=== PATIENT | female | born 1990 | race Caucasian/White ===

== ENCOUNTER → 2017-01-08 | Outpatient (CLI) | payer OTHER ==
--- NOTE | 2017-01-08 10:59 | WOMENS IMAGING REPORT ---
EXAM DESCRIPTION: BILAT DIAGNOSTIC MAMMO W/CAD; U/S BREAST UNILAT LIMITED COMPLETED DATE/TIME: 01/08/2017 9:25 am; 01/08/2017 9:50 am REASON FOR STUDY: LUMP; N63; LT BREAST N63 N63 UNSPECIFIED LUMP IN BREAST palpable abnormality left breast lower inner quadrant COMPARISON: None. TECHNIQUE: Standard craniocaudal and mediolateral oblique views of each breast recorded using digita l acquisition. Additional left breast 90 mediolateral view and cone compression left lower inner quadrant CC and ML O orientations. Left breast ultrasound was also performed. LIMITATIONS: None. FINDINGS: RIGHT BREAST MASSES: No suspicious masses. CALCIFICATIONS: No new or suspicious calcifications. ARCHITECTURAL DISTORTION: None. DEVELOPING DENSITY: None. ASYMMETRY: None noted. OTHER: No other significant findings. LEFT BREAST MASSES: No suspicious masses. CALCIFICATIONS: No new or suspicious calcifications. ARCHITECTURAL DISTORTION: None. DEVELOPING DENSITY: None. ASYMMETRY: None noted. OTHER: No other significant finding. Read with the assistance of CAD: [employer] Coordinator Version 9.2 Left breast ultrasound: Ultrasound of the left breast lower inner quadrant was performed. No focal masses. No cysts. No wo rrisome acoustic absorption. No focal findings. IMPRESSION: No mammographic evidence for malignancy right breast. No mammographic or sonographic evidence for malignancy left breast. BREAST DENSITY: c. The breasts are heterogeneously dense, which may obscure small masses. BIRAD: 1 Negative. RECOMMENDATION: RECOMMENDED FOLLOW UP: Close clinical follow-up for left breast palpable abnormality . Necrosis of growth or change, repeat ultrasound and mammographic workup would be indicated. Other estrella, click please begin yearly bilateral screening mammography at age 40, or sooner based on the pat ient's lifetime risk assessment for breast cancer ([place] model). SPECIFIC INTERVENTION/IMAGING/CONSULTATION RECOMMENDED:No additional intervention/ imaging/consultati on needed at this time. COMMUNICATION:Patient notified by letter COMMENT: The patient has been notified of the results by letter per MQSA requirements. Additional no tification policies are in place for contacting patient with suspicious or incomplete findings. Quality ID #225: The [employer] recommends an annual screening mammogram for women aged 40 years or over. This facility utilizes a reminder system to ensure that all patients receive reminder letters, and/or direct phone calls for appointments. This includes reminders for routine scr eening mammograms, diagnostic mammograms, or other Breast Imaging Interventions when appropriate. Th is patient will be placed in the appropriate reminder system. The [employer] (ACR) has developed recommendations for screening MRI of the breast s in certain patient populations, to be used in conjunction with mammography. Breast MRI surveillanc e may be appropriate for women with more than 20% lifetime risk of developing breast cancer as deter mined by genetic testing, significant family history of the disease, or history of mantle radiation f or Hodgkins Disease. ACR Practice Guidelines 2008. TECHNICAL DOCUMENTATION: FINDING NUMBER: (1) ASSESSMENT: (1) JOB ID: [id number] [employer]- All Rights Reserved
== END ==
LOC: WI 09:25
PROVIDERS: ATTEND Physician Assistant Medical
DX: N63 Unspecified lump in breast (principal)
CPT/HCPCS: 76642; G0204; 77066

== ENCOUNTER 2017-03-28 07:07 | Emergency (ER) | payer OTHER ==
[2017-03-28] MEDS ORDERED: ONDANSETRON 4 MG TAB.RAPDIS PO ONE ×2 (07:17→07:39)
[2017-03-28] MEDS ORDERED: NORMAL SALINE 1000 ML 1,000 ML IV ONE (07:17)
--- NOTE | 2017-03-28 07:17 | ER Document Report ---
ED GI/ - General Stated Complaint: VOMITING/DIARRHEA Mode of Arrival: Ambulatory Information source: Patient Notes: 27 yo female with hives yesterday. This am woke up with exacerbation of the hives and right upper lip swelling. No chest pain or shortness of breath. No fever. 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 Vomited twice and diarrhea once. TRAVEL OUTSIDE OF THE [place] 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 Lives with: Spouse/Significant other Family History: Reviewed & Not Pertinent - Medical History Medical History: Negative Renal/ Medical History: Denies: Hx Peritoneal Dialysis Past Surgical History: Reports: Hx Oral Surgery - wisdom teeth - Immunizations Immunizations up to date: Yes Hx Diphtheria, Pertussis, Tetanus Vaccination: Yes Review of Systems - Review of Systems Constitutional: No symptoms reported EENT: No symptoms reported Cardiovascular: No symptoms reported Respiratory: No symptoms reported Gastrointestinal: See HPI Genitourinary: No symptoms reported Female Genitourinary: No symptoms reported Musculoskeletal: No symptoms reported Skin: See HPI Hematologic/Lymphatic: No symptoms reported Neurological/Psychological: No symptoms reported Physical Exam - Vital signs Vitals: Temp Pulse Resp BP Pulse Ox 97.8 F 102 H 16 117/79 99 03/28/17 07:16 03/28/17 07:16 03/28/17 07:16 03/28/17 07:16 03/28/17 07:16 Interpretation: Normal - General General appearance: Appears well, Alert In distress: None - HEENT Head: Normocephalic, Atraumatic Eyes: Normal Conjunctiva: Normal Pupils: PERRL Mouth/Lips: Other - mild swelling to right upper lip Mucous membranes: Normal Pharynx: Normal. No: Erythema, Uvular edema Neck: Supple. No: Lymphadenopathy - Respiratory Respiratory status: No respiratory distress Chest status: Nontender Breath sounds: Normal Chest palpation: Normal - Cardiovascular Rhythm: Regular Heart sounds: Normal auscultation Murmur: No - Abdominal Inspection: Normal Distension: No distension Bowel sounds: Normal Tenderness: Nontender Organomegaly: No organomegaly - Back Back: Normal, Nontender - Extremities General upper extremity: Normal inspection, Nontender, Normal color, Normal ROM , Normal temperature General lower extremity: Normal inspection, Nontender, Normal color, Normal ROM , Normal temperature, Normal weight bearing. No: Amber's sign - Neurological Neuro grossly intact: Yes Cognition: Normal Orientation: AAOx4 [place] Coma Scale Eye Opening: Spontaneous Jed Coma Scale Verbal: Oriented [place] Coma Scale Motor: Obeys Commands [place] Coma Scale Total: 15 Speech: Normal Motor strength normal: LUE, RUE, LLE, RLE Sensory: Normal - Psychological Associated symptoms: Normal affect, Normal mood - Skin Skin Temperature: Warm Skin Moisture: Dry Skin Color: Normal Skin irregularity: Erythema, Rash - urticarial wrist, upper lateral arms, left hip, abdomen, inner thighs, lower back Location of irregularity: Generalized Irregularity with: Swelling, Warmth Course - Re-evaluation Re-evalutation: 03/28/17 10:22 ua is negative. 03/28/17 red hives faded to pink, lip swelling decreased prior to discharge. She thinks that she has vaginal yeast, itching, burning after tx for trichomonas last week. wants to try diflucan. 03/29/17 09:25 - Vital Signs Vital signs: Temp Pulse Resp BP Pulse Ox 97.8 F 102 H 18 117/68 100 03/28/17 07:16 03/28/17 07:16 03/28/17 10:01 03/28/17 10:01 03/28/17 10:01 - Laboratory Laboratory results interpreted by me: 03/28/17 08:00 Ur Leukocyte Esterase TRACE H Discharge - Discharge Clinical Impression: Urticaria Angioedema Qualifiers: Encounter type: initial encounter Qualified Code(s): T78.3XXA - Angioneurotic edema, initial encounter Vaginitis Qualifiers: Chronicity: acute Qualified Code(s): N76.0 - Acute vaginitis Condition: Good Disposition: HOME, SELF-CARE Instructions: Acid-Suppressing Medication ([facility]), Acute Urticaria ([facility]), Angioedema ([facility]), Use of Diphenhydramine, Steroid Medication, Topical Antifungal ([facility]) Additional Instructions: to er if worse epi pen if lip swelling gets worse and return to the ER continue over the counter benadryl 25- 50mg every 4 hours for the rash for a week continue over the counter pepcid 20mg twice a day for the rash for a week take the prednisone until gone Please complete the patient satisfaction survey if you get one, and return it.. If you do not receive a survey, then you can go to the [facility] website, [email or web address] and place your comments about your very good care. Thank you very much. It was a pleasure being your medical provider today. Prescriptions: Epinephrine 0.3 mg IJ ONCE PRN #1 auto.injct PRN Reason: Fluconazole [Diflucan] 150 mg PO ONCE PRN #1 tablet PRN Reason: Prednisone [Deltasone 10 mg Tablet] 10 mg PO ASDIR PRN #21 tablet PRN Reason: Forms: Parent Work Note Referrals: JOSE C WARNER, [ACTIVE STAFF] - Follow up as needed
[2017-03-28] MEDS ORDERED: METHYLPREDNISOLONE INJ 125 MG/2 ML SDV IV ONE (07:26)
[2017-03-28] MEDS ORDERED: FAMOTIDINE INJ/PF 20 MG/2 ML SDV IV ONE (07:27)
[2017-03-28] MEDS ORDERED: DIPHENHYDRAMINE HCL 50 MG/ML VIAL IV ONE (07:27)
[2017-03-28] MEDS ORDERED: ONDANSETRON 4 MG TAB.RAPDIS ONE (07:31)
[2017-03-28] MEDS ORDERED: EPINEPHRINE INJ/PF 1 MG/1 ML AMPULE SUBCUT ONE (08:47)
[2017-03-28 09:16] LABS: APPEARANCE,URINE SLIGHTLY-CLOUDY; BILIRUBIN,URINE NEGATIVE (NEGATIVE); GLUCOSE, URINE NEGATIVE (NEGATIVE); KETONES,URINE NEGATIVE (NEGATIVE); LEUKOCYTE ESTERASE,URINE TRACE (NEGATIVE); NITRITE,URINE NEGATIVE (NEGATIVE); PROTEIN,URINE NEGATIVE (NEGATIVE); URINE SPECIFIC GRAVITY 1.026; UROBILINOGEN,URINE NEGATIVE mg/dL (<2.0)
[2017-03-28 11:42] VITALS: BP 117/68
== END 2017-03-28 11:01 | disposition home or self-care (01) ==
LOC: ER 07:07
DX: T78.3XXA Angioneurotic edema, initial encounter (principal); L50.9 Urticaria, unspecified; R11.10 Vomiting, unspecified; R19.7 Diarrhea, unspecified; R22.0 Localized swelling, mass and lump, head
CPT/HCPCS: 99285; 96372; 96361; 96374; 96375; 81001; J1200; J0171; S0119; J2930; J7030; S0028

== ENCOUNTER 2017-08-24 07:25 | Emergency (ER) | payer OTHER ==
[2017-08-24 07:31] VITALS: BP 125/74
--- NOTE | 2017-08-24 07:52 | ER Document Report ---
ED General - General Chief Complaint: Skin Problem Stated Complaint: POSSIBLE CYST Time Seen by Provider: 08/24/17 07:35 Mode of Arrival: Ambulatory Information source: Patient TRAVEL OUTSIDE OF THE [place] IN LAST 30 DAYS: No - HPI Notes: 19-year-old female presents today with complaints of left groin swelling that started approximately 2 days ago. Reports she has been using a razor to shave 3 days ago. Denies any fevers or chills. Pain is 1 out of 10, achy. Eating and drinking without issues. Has not tried any [id number] medications. Has not tried any heat or cold compresses. States has been getting slightly worse with time. Last menstrual period was 08/09/17. Patient is sexually active and does not use any form of control. Denies fevers, chills, chest pain, palpitations, shortness of breath, dyspnea, nausea, vomiting, diarrhea, abdominal pain, hematuria,blurred vision, double vision, loss of vision, speech changes, LH, dizziness, syncope, headaches, wheezing, ST, URI, neck pain, weakness, bowel or bladder dysfunction, saddle anesthesia, numbness or tingling in bilateral upper or lower extremities equally, muscle paralysis, weakness in bilateral upper or lower extremities equally or rash. Denies IV drug use. - Related Data Allergies/Adverse Reactions: Penicillins Allergy (Verified 08/24/17 07:27) Past Medical History - General Information source: Patient - Social History Smoking Status: Unknown if Ever Smoked Family History: Reviewed & Not Pertinent - Past Medical History Cardiac Medical History: Denies: Hx Coronary Artery Disease, Hx Heart Attack, Hx Hypertension Pulmonary Medical History: Denies: Hx Asthma, Hx Bronchitis, Hx COPD, Hx Pneumonia Neurological Medical History: Denies: Hx Cerebrovascular Accident, Hx Seizures Renal/ Medical History: Denies: Hx Peritoneal Dialysis Musculoskeltal Medical History: Denies Hx Arthritis Past Surgical History: Reports: Hx Hysterectomy, Hx Oral Surgery - wisdom teeth - Immunizations Immunizations up to date: Yes Hx Diphtheria, Pertussis, Tetanus Vaccination: Yes Review of Systems - Review of Systems Constitutional: No symptoms reported EENT: No symptoms reported Cardiovascular: No symptoms reported Respiratory: No symptoms reported Gastrointestinal: No symptoms reported Genitourinary: No symptoms reported Female Genitourinary: No symptoms reported Musculoskeletal: No symptoms reported Skin: See HPI Hematologic/Lymphatic: No symptoms reported Neurological/Psychological: No symptoms reported Physical Exam - Vital signs Vitals: Temp Pulse Resp BP Pulse Ox 98.1 F 86 20 125/74 100 08/24/17 07:30 08/24/17 07:30 08/24/17 07:30 08/24/17 07:30 08/24/17 07:30 - Notes Notes: REVIEW OF SYSTEMS: CONSTITUTIONAL : Denies fever, chills, or sweats. Denies recent illness. EENT: Denies eye, ear, throat, or mouth pain or symptoms. Denies nasal or sinus congestion or discharge. Denies throat, tongue, or mouth swelling or difficulty swallowing. CARDIOVASCULAR: Denies chest pain. Denies palpitations or racing or irregular heart beat. Denies ankle edema. RESPIRATORY: Denies cough, cold, or chest congestion. Denies shortness of breath, difficulty breathing, or wheezing. GASTROINTESTINAL: Denies abdominal pain or distention. Denies nausea, vomiting , or diarrhea. Denies blood in vomitus, stools, or per rectum. Denies black, tarry stools. Denies constipation. GENITOURINARY: Denies difficulty urinating, painful urination, burning, frequency, blood in urine, or discharge. FEMALE GENITOURINARY: Denies vaginal bleeding, heavy or abnormal periods, irregular periods. Denies vaginal discharge or odor. MUSCULOSKELETAL: Denies back or neck pain or stiffness. Denies joint pain or swelling. SKIN: Denies rash, lesions or sores. HEMATOLOGIC : Denies easy bruising or bleeding. LYMPHATIC: Denies swollen, enlarged glands. NEUROLOGICAL: Denies confusion or altered mental status. Denies passing out or loss of consciousness. Denies dizziness or lightheadedness. Denies headache. Denies weakness or paralysis or loss of use of either side. Denies problems with gait or speech. Denies sensory loss, numbness, or tingling. Denies seizures. PSYCHIATRIC: Denies anxiety or stress. Denies depression, suicidal ideation, or homicidal ideation. ALL OTHER SYSTEMS REVIEWED AND NEGATIVE. PHYSICAL EXAMINATION: GENERAL: Well-appearing, well-nourished and in no acute distress. HEAD: Atraumatic, normocephalic. EYES: Pupils equal round and reactive to light, extraocular movements intact, conjunctiva are normal. ENT: Nares patent, oropharynx clear without exudates. Moist mucous membranes. NECK: Normal range of motion, supple without lymphadenopathy LUNGS: Breath sounds clear to auscultation bilaterally and equal. No wheezes rales or rhonchi. HEART: Regular rate and rhythm without murmurs ABDOMEN: Soft, nontender, nondistended abdomen. No guarding, no rebound. No masses appreciated. Female : noted mobile, hard lymphadenopathy to left inguinal area approx [id number]. Surrounding erythema, induration, warmth. Noted erythemic ingrown hair to lasts labia majora approx [id number]. No induration, warmth to touch, fluctuance noted. No noted ulcerations. External examination negative for any vaginal discharge, malodor or lesions. STEVEN Bynum, at bedside epoxy specialist. Musculoskeletal: Normal range of motion, no pitting or edema. No cyanosis. NEUROLOGICAL: Cranial nerves grossly intact. Normal speech, normal gait. Normal sensory, motor exams PSYCH: Normal mood, normal affect. SKIN: Warm, Dry, normal turgor, no rashes or lesions noted. Dictation was performed using [employer] voice recognition software Course - Re-evaluation Re-evalutation: Healthy afebrile female presents today for evaluation of the groin tenderness. Patient presents with symptoms most consistent with an acute folliculitis. vitals within normal limits. Her urine was negative. patient does not meet sepsis criteria is overall very well in appearance. Patient will be started on coverage for both staph and strep. At this time will discharge with return precautions and follow-up recommendations. Verbal discharge instructions given a the bedside and opportunity for questions given. Medication warnings reviewed. Patient is in agreement with this plan and has verbalized understanding of return precautions and the need for primary care follow-up in the next 24-72 hours. advised her that she needs to apply warm compress 20 minutes on 20 minutes off several times a day, take antibiotics as directed with food, for any worsening symptoms checked instructions to follow- up with her primary care provider Thursday which patient is established with. Patient verbalized understanding of this plan of care. Discharged home without incident. After performing a Medical Screening Examination, I estimate there is LOW risk for OPEN FRACTURE, COMPARTMENT SYNDROME, TENDON RUPTURE, ACUTE NEUROVASCULAR INJURY, or RETAINED FOREIGN BODY, thus I consider the discharge disposition reasonable. Also, there is no evidence or peritonitis, sepsis, or toxicity. I have reevaluated this patient multiple times and no significant life threatening changes are noted. The patient and I have discussed the diagnosis and risks, and we agree with discharging home with close follow-up with the understanding that symptoms and presentations can change. We also discussed returning to the Emergency Department immediately if new or worsening symptoms occur. We have discussed the symptoms which are most concerning (e.g., changing or worsening pain, fever, numbness, weakness, cool or painful digits) that necessitate immediate return. = - Vital Signs Vital signs: Temp Pulse Resp BP Pulse Ox 98.1 F 86 20 125/74 100 08/24/17 07:30 08/24/17 07:30 08/24/17 07:30 08/24/17 07:30 08/24/17 07:30 Discharge - Discharge Clinical Impression: Folliculitis Condition: Good Disposition: HOME, SELF-CARE Instructions: Folliculitis ([facility]) Additional Instructions: Folliculitis You have a skin infection called folliculitis. This occurs when bacteria infect the hair follicles of the skin. Typically, redness and small pustules are found where hair shafts enter the skin. Allergy, surface irritation, shaving, and exposure to hot tubs predispose to folliculitis. The usual treatment is antibiotic ointment, sometimes combined with cortisone-type medication. Warm compresses are often used. If the infection has moved deeper into the skin, oral antibiotics may be necessary. To avoid future episodes of folliculitis, you must identify (if possible) the factors which allowed this infection to start. If you develop increasing pain, swelling, fever, or red streaks, call the doctor or return for re-evaluation. return to the immediately if you experience any but not limited to worsening swelling, increased pain, fevers or chills, Return immediately for any new or worsening symptoms. Follow up with primary care provider, call tomorrow to make followup appointment. Prescriptions: Cephalexin Monohydrate [Keflex 500 mg Capsule] 500 mg PO BID 10 Days #20 capsule Clindamycin HCl 300 mg PO Q6H #28 capsule Forms: Return to Work Referrals: RICHARD JAMES MD [ACTIVE STAFF] - 08/26/17
== END 2017-08-24 08:40 | disposition home or self-care (01) ==
LOC: ER 07:25
DX: L73.9 Follicular disorder, unspecified (principal); Z88.0 Allergy status to penicillin
CPT/HCPCS: 81025; 99283

== ENCOUNTER 2019-09-07 07:05 | Inpatient (IN) | payer OTHER ==
[2019-09-07 08:10] LABS: APPEARANCE,URINE SLIGHTLY-CLOUDY; BILIRUBIN,URINE NEGATIVE (NEGATIVE); COLOR,URINE YELLOW; GLUCOSE, URINE NEGATIVE (NEGATIVE); KETONES,URINE NEGATIVE (NEGATIVE); LEUKOCYTE ESTERASE,URINE NEGATIVE (NEGATIVE); NITRITE,URINE NEGATIVE (NEGATIVE); PROTEIN,URINE NEGATIVE (NEGATIVE); URINE SPECIFIC GRAVITY 1.014; UROBILINOGEN,URINE NEGATIVE mg/dL (<2.0)
[2019-09-07] MEDS: RINGERS SOLUTION,LACTATED 1,000 ML IV PRN ×3 (08:28→15:51)
[2019-09-07 08:37] LABS: URINE AMPHETAMINES SCREEN NEGATIVE; URINE BARBITURATES SCREEN NEGATIVE; URINE BENZODIAZEPINES SCREEN NEGATIVE; URINE COCAINE SCREEN NEGATIVE; URINE MARIJUANA (THC) SCREEN NEGATIVE; URINE METHADONE SCREEN NEGATIVE; URINE PHENCYCLIDINE SCREEN NEGATIVE
--- NOTE | 2019-09-07 11:48 | Admission Physical ---
Datetime Report Generated by CPN: 09/07/2019 11:48 CURRENT ADMISSION Hx Assessment: The History has been Reviewed and is Current Chief Complaint: Uterine Contractions Indication for Induction: Not Applicable Admit Impression : Term, Intrauterine ; Active Labor Admit Plan: Admit to Unit; Initiate Labor Protocol ALLERGIES Medication Allergies: Yes Medication Allergies: Penicillins/Generalized hilario (09/07/2019) Latex: No Latex Allergies OBSTETRICAL HISTORY EDC: 09/13/2019 00:00 : 1 Para: 0 Gestational Diabetes: No Rh Sensitization: No Incompetent Cervix: No UZHAIR: No Infertility: Yes ART Treatment: No Uterine Anomaly: No IUGR: No Hx Previous C/S: No Macrosomia: No Hx Loss/Stillborn: No PIH: No Hx : No Placenta Previa/Abruption: No Depression/PP Depression: No PTL/PROM: No Post Hemorrhage: No Current Procedures: Ultrasound; NST SEE RECORDS Alcohol: No Marijuana : No Cocaine: No Other Illicit Drugs: No MEDICAL HISTORY Diabetes: No Blood Transfusion: No Pulmonary Disease (Asthma, TB): No Breast Disease: No Hypertension: No Manager [employer] Surgery: No Heart Disease: No Hosp/Surgery: No Autoimmune Disorder: No Anesthetic Complications: No Kidney Disease: No Abnormal Pap Smear: No Neuro/Epilepsy: No Psychiatric Disorders: No Other Medical Diseases: No Hepatitis/Liver Disease: No Significant Family History: No Varicosities/Phlebitis: No Trauma/Violence : No Thyroid Dysfunction: No PHYSICAL EXAM General: Normal Heart: Normal Lungs: Normal Abdomen: Normal Extremities: Normal Vital Signs: Reviewed Details Vital Signs: some mild range bps with pain/contractions, will continue to monitor VAGINAL EXAM Contraction Comments: 4 MEMBRANES Membranes: Bulging FETUS A EGA: 39.1 Monitoring: External US FHR Category: Category I Presentation: Vertex Admit Comment: 29yo G1 @ 39w1d O pos, RI, GBS neg, into L_D with contractions since earlier this AM. Pt walked x2hrs with some cervical change and will now be admitted in labor. complicated by hx of chlamydia and HSV (on Valtrex since 37weeks, denies recent outbreak, will confirm no lesions on exam) as well as high weight gain in and low lying placenta that resolved in third trimester. Dr. Harden is the OB environmental property assessor and aware of admission and plan. Pt now with questionable LOF, will obtain actim prom at this time, will augment with pit as needed and AROM if intact. Epidural prn. INFORMED CONSENT Assignment: Masoud Harden MD Signature: with User ID: [email or web address] : with User ID: [email or web address]
[2019-09-07 11:53] LABS: HEMATOCRIT 37.4 % (36.0-47.0); HEMOGLOBIN 13.1 g/dL (12.0-15.5); MEAN CORPUSCULAR HEMOGLOBIN 32.4 pg (27.0-33.4); MEAN CORPUSCULAR VOLUME 93 fl (80-97); PLATELET COUNT 192 10^3/uL (150-450); RED BLOOD COUNT 4.04 10^6/uL (3.72-5.28); RED CELL DISTRIBUTION WIDTH 13.1 % (11.5-14.0); WHITE BLOOD COUNT 16.5 10^3/uL (4.0-10.5)
[2019-09-07] MEDS ORDERED: DEXTROSE 5%-LACTATED RINGERS 1,000 ML IV PRN (12:55)
[2019-09-07] MEDS ORDERED: EPHEDRINE SULFATE INJ 50 MG/1 ML AMPULE ONE (14:35)
[2019-09-07] MEDS ORDERED: FENTANYL/BUPIVACAINE/NS/PF 300 MCG/150 ML RTUINJ EPI ONE (14:36)
[2019-09-07] MEDS ORDERED: BUPIVACAINE HCL 0.25 % INJ/PF (2.5 MG/1 ML) 30 ML VIAL ONE (14:36)
[2019-09-07] MEDS ORDERED: OXYTOCIN 10 UNIT/ML VIAL ONE (17:11)
[2019-09-07] MEDS ORDERED: OXYTOCIN/NORMAL SALINE 20 UNIT/1,000 ML RTUINJ IV PRN ×2 (17:11→20:48)
[2019-09-07] MEDS ORDERED: LIDOCAINE 1% INJ-PF (10 MG/ML) 30 ML SDV ONE ×2 (17:11→17:12)
[2019-09-07] MEDS ORDERED: OXYTOCIN/NORMAL SALINE 20 UNIT/1,000 ML RTUINJ ONE (17:11)
[2019-09-07] MEDS ORDERED: MISOPROSTOL 0.2 MG TABLET ONE (17:11)
[2019-09-07] MEDS ORDERED: ACETAMINOPHEN 650 MG SUPP.RECT PR PRN (20:48)
[2019-09-07] MEDS ORDERED: PROMETHAZINE HCL 25 MG TABLET PO PRN (20:48)
[2019-09-07] MEDS ORDERED: MAGNESIUM HYDROXIDE SUSP 30 ML UDCUP PO PRN (20:48)
[2019-09-07] MEDS ORDERED: DIBUCAINE 1% OINTMENT 28 GM TP PRN (20:48)
[2019-09-07] MEDS ORDERED: PSEUDOEPHEDRINE HCL 30 MG TABLET PO PRN (20:48)
[2019-09-07] MEDS ORDERED: NA PHOS,M-B/NA PHOS,DI-BA (ADULT) 133 ML ENEMA PR PRN (20:48)
[2019-09-07] MEDS ORDERED: MEASLES,MUMPS&RUBELLA VACC/PF 0.5 ML VIAL SUBCUT PRN (20:48)
[2019-09-07] MEDS ORDERED: GLYCERIN/WITCH HAZEL LEAF 1 EACH MED..WIPE TP PRN (20:48)
[2019-09-07] MEDS ORDERED: DIPH/PERTUSS(ACELL)/TETANUS VAC/PF 0.5 ML SYR (>=10YO) IM PRN (20:48)
[2019-09-07] MEDS ORDERED: ACETAMINOPHEN WITH CODEINE #3 TABLET PO PRN ×2 (20:48)
[2019-09-07] MEDS ORDERED: PROMETHAZINE HCL 25 MG SUPP.RECT PR PRN (20:48)
[2019-09-07] MEDS ORDERED: DIPHENHYDRAMINE HCL 25 MG CAPSULE PO PRN (20:48)
[2019-09-07] MEDS ORDERED: PROMETHAZINE HCL INJ 25 MG/1 ML VIAL IV PRN (20:48)
[2019-09-07] MEDS ORDERED: BENZOCAINE/MENTHOL AEROSOL SPRAY 56 ML TOP PRN (20:48)
[2019-09-07] MEDS ORDERED: ZOLPIDEM TARTRATE 5 MG TABLET PO PRN (20:48)
--- NOTE | 2019-09-07 21:59 | Delivery Summary ---
Del Sum A-C Datetime Report Generated by CPN: 09/07/2019 21:59 DELIVERY PERSONNEL DELIVERY PERSONNEL: [id number] Delivery Doctor:: Masoud Harden MD Labor and Delivery Nurse:: Tasneem Sims RN Nursery Nurse:: Ade Beal RN [employer] DISPATCHER: [place], NUTRITIONISTS [employer] DISPATCHER: Marcelle Barksdale, ST MATERNAL INFORMATION Delivery Anesthesia: Epidural Medications After Delivery: Pitocin Bolus-Please Comment Meds After Delivery Comment: 20 units in 1000mL NS open bolus Estimated Blood Loss (ml): 250 Delivery QBL: 250 Maternal Complications: None LABOR SUMMARY EDC: 09/13/2019 00:00 No. Babies in Womb: 1 Attempted: No Labor Anesthesia: Epidural LABOR INFORMATION Reason for Induction: Not Applicable Onset of Labor: 09/07/2019 04:30 Complete Dilatation: 09/07/2019 19:00 Oxytocin: Augmentation Group B Beta Strep: Neg Antibiotics # of Doses: 0 Steroids Given: None Reason Steroids Not Administered: Not Applicable MEMBRANES Membranes Rupture Method: Artificial Rupture of Membranes: 09/07/2019 14:05 Length of Rupture (hr): 6.45 Amniotic Fluid Color: Moderate Meconium Amniotic Fluid Amount: Small Amniotic Fluid Odor: None STAGES OF LABOR Stage 1 hr: 14 Stage 1 min: 30 Stage 2 hr: 1 Stage 2 min: 32 Stage 3 hr: 0 Stage 3 min: 4 Total Time in Labor hr: 16 Total Time in Labor min: 6 VAGINAL DELIVERY Episiotomy: None Laceration #1: Perineal Laceration Extension #1: Second Degree Laceration #2: None Laceration Extension #2: N/A Laceration #3: None Laceration Extension #3: N/A Laceration Repair: Yes Laceration Repair Note: repair in usual fashion with 3-0 chromic suture Sponge Count Correct: N/A; Vaginal Sweep Performed Sharps Count Correct: Yes CSECTION DELIVERY Primary Indication: N/A Secondary Indication: N/A CSection Incidence: N/A Labor: N/A Elective: N/A CSection Incision: N/A BABY A INFORMATION Delivery Date/Time: 09/07/2019 20:32 Method of Delivery: Vaginal Nurse Controlled Delivery: No Born in Route : No : N/A Forceps: N/A Vacuum Extraction: N/A Shoulder Dystocia : No PRESENTATION/POSITION BABY A Presentation: Cephalic Cephalic Presentation: Vertex Vertex Position: Left Occipital Anterior Breech Presentation: N/A PLACENTA INFORMATION BABY A Placenta Delivery Time : 09/07/2019 20:36 Placenta Method of Delivery: Spontaneous Placenta Status: Delivered SCORES BABY A Heart Rate 1 min: >100 bpm Resp Effort 1 min: Slow, Irregular Reflex Irritability 1 min: Cough or Sneeze or Pulls Away Muscle Tone 1 min: Some Flexion of Extremities Color 1 min: Blue/Pale Resuscitation Effort 1 min: Tactile Stimulation SCORE 1 MIN: 6 Heart Rate 5 min: >100 bpm Resp Effort 5 min: Good Cry Reflex Irritability 5 min: Cough or Sneeze or Pulls Away Muscle Tone 5 min: Some Flexion of Extremities Color 5 min: Body [place], Extremities Blue Resuscitation Effort 5 min: Tactile Stimulation SCORE 5 MIN: 8 INFANT INFORMATION BABY A Gestational Age at Delivery: 39.1 Gestational Status: Full Term- 39- 40.6 Weeks Infant Outcome : Liveborn Infant Condition : Stable Sex: Male IDENTIFICATION BABY A Verification Date/Time: 09/07/2019 21:36 ID Band Number: [id number] Mother's Name Verified: Yes RN Verifying Infant: Mary Ann Sims RN Additional Verifying Personnel: Video Blocks RN WEIGHT/LENGTH BABY A Infant Birthweight (gm): 3091 Weight (lb): 6 Infant Weight (oz): 13 Infant Length (in): 19.50 Infant Length (cm): 49.53 CORD INFORMATION BABY A No. Cord Vessels: 3 Nuchal Cord : Around Neck x1, Tight Cord Blood Taken: Yes-For Eval (Mom's Blood Type - or O+) Suction: Mouth; Nose ASSESSMENT BABY A Complications: None Physical Findings at Delivery: Within Normal Limits Respirations: Appears Normal Skin to Skin: Yes Skin to Skin Time (min): 60 Transferred To: Remains with Mother BABY B INFORMATION : N/A SIGNATURES Signature: with User ID: [email or web address]
[2019-09-07] MEDS ORDERED: IBUPROFEN 800 MG TABLET ONE (22:54)
[2019-09-08] MEDS: IBUPROFEN 800 MG TABLET PO SCH ×4 (00:38→21:58)
[2019-09-08] MEDS: FAMOTIDINE 20 MG TABLET PO SCH ×3 (00:39→22:04)
[2019-09-08 06:52] LABS: HEMATOCRIT 33.2 % (36.0-47.0); HEMOGLOBIN 11.7 g/dL (12.0-15.5); MEAN CORPUSCULAR HEMOGLOBIN 33.1 pg (27.0-33.4); MEAN CORPUSCULAR HGB CONC 35.4 g/dL (32.0-36.0); MEAN CORPUSCULAR VOLUME 94 fl (80-97); PLATELET COUNT 178 10^3/uL (150-450); RED BLOOD COUNT 3.55 10^6/uL (3.72-5.28); RED CELL DISTRIBUTION WIDTH 13.1 % (11.5-14.0); WHITE BLOOD COUNT 24.4 10^3/uL (4.0-10.5)
[2019-09-08] MEDS: PRENATAL VITAMIN W DHA CAPSULE PO SCH (09:31)
[2019-09-08] MEDS: SENNOSIDES/DOCUSATE 8.6-50 MG 1 EACH TABLET PO SCH (09:31)
[2019-09-08] MEDS: DOCUSATE SODIUM 100 MG CAPSULE PO SCH ×2 (09:31→17:43)
[2019-09-08] MEDS: FERROUS SULFATE 325 MG TABLET PO SCH ×2 (09:31→17:42)
--- NOTE | 2019-09-08 10:08 | PDOC PROGRESS REPORT ---
Subjective-OB Progress Note for:: 09/08/19 - PP Day#1, doing well, , no complaints, O+, Rubella immune Physical Exam (OB) Vital Signs: Temp Pulse Resp BP Pulse Ox 98.1 F 94 16 119/71 99 09/08/19 07:23 09/08/19 07:23 09/08/19 07:23 09/08/19 07:23 09/08/19 07:23 Intake & Output 09/07/19 09/08/19 09/09/19 06:59 06:59 06:59 Intake Total 2232 Output Total 800 Balance 1432 Weight 76.9 kg - General General Appearance: Appears well, Alert In distress: None - PIH/Pre-Eclampsia Headache: Absent Epigastric Pain: No Visual Changes: No - Lochia Lochia Amount: Small 10-25 ml Lochia Color: Rubra/Red - Abdomen Description: Soft Hernia Present: No Fundal Description: Firm, Midline Fundal Height: u/u - u/2 - Respiratory Respiratory Status: No respiratory distress - Abdominal Distension: No distension Tenderness: Nontender - Genitourinary Genitourinary Note: UOB voiding - Extremities Upper extremity: Normal inspection Lower extremities: Normal inspection - Neurological Cognition: Normal Orientation: AAOx4 - Psychological Associated symptoms: Normal affect, Normal mood - Skin Skin Temperature: Warm Skin Moisture: Dry Objective-Diagnostic Laboratory: 09/08/19 06:39 09/07/19 09/07/19 09/08/19 11:37 11:37 06:39 WBC 16.5 H 24.4 H RBC 4.04 3.55 L Hgb 13.1 11.7 L Hct 37.4 33.2 L MCV 93 94 MCH 32.4 33.1 MCHC 35.0 35.4 RDW 13.1 13.1 Plt Count 192 178 Blood Type O POSITIVE Antibody Screen NEGATIVE Assessment and Plan(PN) Plan:: routine PP orders, watch WBC, check CBC in am. Ambulation encouraged, Routine PP orders - Time Spent with Patient Time with patient: Less than 15 minutes Medications reviewed and adjusted accordingly: Yes - Disposition Anticipated Discharge: Home Within: within 24 hours
[2019-09-09] MEDS: IBUPROFEN 800 MG TABLET PO SCH (06:11)
[2019-09-09 06:59] LABS: ABSOLUTE BASOPHILS # (AUTO) 0.1 10^3/uL (0.0-0.2); ABSOLUTE EOSINOPHILS # (AUTO) 0.1 10^3/uL (0.0-0.6); ABSOLUTE LYMPHOCYTES (AUTO) 2.7 10^3/uL (0.5-4.7); ABSOLUTE MONOCYTES (AUTO) 0.9 10^3/uL (0.1-1.4); ABSOLUTE NEUT (AUTO) 13.3 10^3/uL (1.7-8.2); BASOPHILS % (AUTO) 0.4 % (0-2); EOSINOPHILS % (AUTO) 0.8 % (0-6); HEMATOCRIT 32.9 % (36.0-47.0); HEMOGLOBIN 11.5 g/dL (12.0-15.5); LYMPHOCYTES % (AUTO) 15.7 % (13-45); MEAN CORPUSCULAR HEMOGLOBIN 33.2 pg (27.0-33.4); MEAN CORPUSCULAR VOLUME 95 fl (80-97); PLATELET COUNT 180 10^3/uL (150-450); RED BLOOD COUNT 3.47 10^6/uL (3.72-5.28); RED CELL DISTRIBUTION WIDTH 13.4 % (11.5-14.0); SEGMENTED NEUTROPHILS % (AUTO) 78.1 % (42-78); TOTAL CELLS COUNTED % (AUTO) 100 %; WHITE BLOOD COUNT 17.1 10^3/uL (4.0-10.5)
--- NOTE | 2019-09-09 09:44 | PDOC DISCHARGE SUMMARY ---
Impression - Admit/DC Date/PCP Admission Date/Primary Care Provider: 09/07/19 11:19 PAT DICK PA-C Discharge Date: 09/09/19 - PP day #2, doing well, no complaints, UOB, voiding, Denies fever or chills. WBC dropped this morning. O+, rubella Immune, - Discharge Diagnosis (1) (normal spontaneous vaginal delivery) Is this a current diagnosis for this admission?: Yes (2) Normal course Is this a current diagnosis for this admission?: Yes (3) Is this a current diagnosis for this admission?: Yes - Additional Information Resuscitation Status: Full Code Discharge Diet: As Tolerated Discharge Activity: Activity As Tolerated, No Lifting Over 10 Pounds, Pelvic Rest Referrals: PAT DICK PA-C [Primary Care Provider] - Prescriptions: Ferrous Sulfate [Feosol 325 mg Tablet] 325 mg PO BID #60 tablet Ibuprofen [Motrin 800 mg Tablet] 800 mg PO Q8 #60 tablet Home Medications: Vitamin [-U Multiple Vitamin Capsule] 1 cap PO DAILY 09/07/19 Ferrous Sulfate [Feosol 325 mg Tablet] 325 mg PO BID #60 tablet 09/09/19 Ibuprofen [Motrin 800 mg Tablet] 800 mg PO Q8 #60 tablet 09/09/19 HPI Reason(s) for Admission: Onset of Labor Procedures: Ultrasound Intrapartum Procedure(s): Spontaneous Vaginal Delivery Complication(s): Laceration-Perineal Laceration-Degree: 2nd Results Laboratory Results: WBC 17.1 10^3/uL (4.0-10.5) H 09/09/19 06:18 RBC 3.47 10^6/uL (3.72-5.28) L 09/09/19 06:18 Hgb 11.5 g/dL (12.0-15.5) L 09/09/19 06:18 Hct 32.9 % (36.0-47.0) L 09/09/19 06:18 MCV 95 fl (80-97) 09/09/19 06:18 MCH 33.2 pg (27.0-33.4) 09/09/19 06:18 MCHC 35.0 g/dL (32.0-36.0) 09/09/19 06:18 RDW 13.4 % (11.5-14.0) 09/09/19 06:18 Plt Count 180 10^3/uL (150-450) 09/09/19 06:18 Lymph % (Auto) 15.7 % (13-45) 09/09/19 06:18 [place] % (Auto) 5.0 % (3-13) 09/09/19 06:18 Eos % (Auto) 0.8 % (0-6) 09/09/19 06:18 Baso % (Auto) 0.4 % (0-2) 09/09/19 06:18 Absolute Neuts (auto) 13.3 10^3/uL (1.7-8.2) H 09/09/19 06:18 Absolute Lymphs (auto) 2.7 10^3/uL (0.5-4.7) 09/09/19 06:18 Absolute Monos (auto) 0.9 10^3/uL (0.1-1.4) 09/09/19 06:18 Absolute Eos (auto) 0.1 10^3/uL (0.0-0.6) 09/09/19 06:18 Absolute Basos (auto) 0.1 10^3/uL (0.0-0.2) 09/09/19 06:18 Seg Neutrophils % 78.1 % (42-78) H 09/09/19 06:18 Urine Color YELLOW 09/07/19 07:15 Urine Appearance SLIGHTLY-CLOUDY 09/07/19 07:15 Urine pH 7.0 (5.0-9.0) 09/07/19 07:15 Ur Specific [place] 1.014 09/07/19 07:15 Urine Protein NEGATIVE mg/dL (NEGATIVE) 09/07/19 07:15 Urine Glucose (UA) NEGATIVE mg/dL (NEGATIVE) 09/07/19 07:15 Urine Ketones NEGATIVE mg/dL (NEGATIVE) 09/07/19 07:15 Urine Blood MODERATE (NEGATIVE) H 09/07/19 07:15 Urine Nitrite NEGATIVE (NEGATIVE) 09/07/19 07:15 Urine Bilirubin NEGATIVE (NEGATIVE) 09/07/19 07:15 Urine Urobilinogen NEGATIVE mg/dL (<2.0) 09/07/19 07:15 Ur Leukocyte Esterase NEGATIVE (NEGATIVE) 09/07/19 07:15 Urine Ascorbic Acid NEGATIVE (NEGATIVE) 09/07/19 07:15 Urine Opiates Screen NEGATIVE 09/07/19 07:15 Urine Methadone Screen NEGATIVE 09/07/19 07:15 Ur Barbiturates Screen NEGATIVE 09/07/19 07:15 Ur Phencyclidine Scrn NEGATIVE 09/07/19 07:15 Ur Amphetamines Screen NEGATIVE 09/07/19 07:15 U Benzodiazepines Scrn NEGATIVE 09/07/19 07:15 Urine Cocaine Screen NEGATIVE 09/07/19 07:15 U Marijuana (THC) Screen NEGATIVE 09/07/19 07:15 RPR NONREACTIVE (NONREACTIVE) 09/07/19 11:37 Blood Type O POSITIVE 09/07/19 11:37 Antibody Screen NEGATIVE 09/07/19 11:37 Plan Plan of Treatment: d/c home. Fever precautions reviewed. f/up with [facility] in 4 wks for PP check Time Spent: Less than 30 Minutes
[2019-09-09 10:17] LABS: HSV-I IGG AB 5.09 index (0.00-0.90)
[2019-09-09 11:11] VITALS: BP 136/74
[2019-09-09] MEDS: PRENATAL VITAMIN W DHA CAPSULE PO SCH (11:52)
[2019-09-09] MEDS: DOCUSATE SODIUM 100 MG CAPSULE PO SCH (11:52)
[2019-09-09] MEDS: FERROUS SULFATE 325 MG TABLET PO SCH (11:52)
[2019-09-09] MEDS: FAMOTIDINE 20 MG TABLET PO SCH (11:52)
[2019-09-09] MEDS: SENNOSIDES/DOCUSATE 8.6-50 MG 1 EACH TABLET PO SCH (11:52)
== END 2019-09-09 13:55 | disposition home or self-care (01) | DRG 807 ==
LOC: LC 07:05 → LR 11:19 → 2S 22:30
PROVIDERS: ADMIT Obstetrics & Gynecology; ATTEND Obstetrics & Gynecology
PROC: 10E0XZZ Delivery of Products of Conception, External Approach (ICD-10-PCS; principal; 2019-09-07)
PROC: 0KQM0ZZ Repair Perineum Muscle, Open Approach (ICD-10-PCS; 2019-09-07)
DX: O69.1XX0 Labor and delivery complicated by cord around neck, with compression, not applicable or unspecified (principal); Z37.0 Single live birth; O77.0 Labor and delivery complicated by meconium in amniotic fluid; O70.1 Second degree perineal laceration during delivery; Z3A.39 39 weeks gestation of pregnancy
CPT/HCPCS: 1967; 36415; 80307; 81005; 85025; 85027; 86592; 86695; 86696; 86850; 86900; 86901; 94760; J2590; J3010; J3490